=== PATIENT | female | born 1965 ===

== ENCOUNTER 2016-12-17 05:55 | Observation (INO) | payer MEDICARE, OTHER ==
[2016-12-17 05:55] VITALS: BMI 25.0
[2016-12-17] MEDS ORDERED: DiphenhydrAMINE 50 mg/ml Inj IV STA (06:11)
[2016-12-17] MEDS ORDERED: DiphenhydrAMINE 50 mg/ml Inj ONE (06:20)
--- NOTE | 2016-12-17 06:20 | ED PDOC ---
HPI: Abdomen <Montrell Ferreira III - Last Filed: 12/17/16 07:08> History Per: Patient History/Exam Limitations: no limitations Onset/Duration Of Symptoms: Days (7) Outside of [place] travel?: No Current Symptoms Are (Timing): Still Present Severity: Severe Location Of Pain/Discomfort: Diffuse Quality Of Discomfort: "Pain" Associated Symptoms: Nausea, Vomiting. denies: Fever, Chills, Diarrhea, Loss Of Appetite, Back Pain, Chest Pain, Constipation, Urinary Symptoms Exacerbating Factors: None Alleviating Factors: None Additional History Per: Patient <Nikolas Whalen - Last Filed: 12/17/16 19:41> Time Seen by Provider: 12/17/16 06:03 Chief Complaint (Nursing): Abdominal Pain Additional Complaint(s): 51 y/o female with known history of diverticular disease, ESRD on M/W/F hemodialysis, and HTN, here complaining of severe diffuse abdominal pain for one week. Percocet did not relieve her pain. Pain is associated with nausea and nonbloody nonbilious vomiting. No diarrhea, chest pain, shortness of breath, fever, or chills. She reports that she was recently seen at [facility] for the same and discharged, however her pain has worsened. Patient has also been seen multiple times in this department, and is well known to this provider. (Nikolas Whalen) Past Medical History <Montrell Ferreira III - Last Filed: 12/17/16 07:08> Reviewed: Historical Data, Nursing Documentation, Vital Signs - Medical History PMH: Anemia, Anxiety, Diverticulitis, Gastritis, HTN, Hypercholesterolemia, Kidney Stones, End Stage Renal Disease, Chronic Kidney Disease (HD M/W/F) Denies: HIV - Surgical History Surgical History: Cholecystectomy Other surgeries: AV Fistula placement - Family History Family History: States: Unknown Family Hx - Social History Current smoker - smoking cessation education provided: No Alcohol: None Drugs: Denies - Immunization History Hx Tetanus Toxoid Vaccination: No Hx Influenza Vaccination: Yes Hx Pneumococcal Vaccination: Yes <Nikolas Whalen - Last Filed: 12/17/16 19:41> Vital Signs: Last Vital Signs Temp 98.8 F 12/17/16 13:59 Pulse 93 H 12/17/16 13:28 Resp 18 12/17/16 13:28 BP 136/78 12/17/16 13:28 Pulse Ox 99 12/17/16 14:41 - Home Medications Home Medications: Ambulatory Orders Medication Instructions Recorded Calcium Carbonate/Vitamin D3 600 mg PO DAILY 10/17/15 [Calcium 600-Vit D3 200 Tablet] Enalapril/Hydrochlorothiazide 1 tab PO DAILY 10/17/15 [Enalapril-Hctz 10-25 mg Tablet] Ferric Sulfate 325 mg PO DAILY 10/17/15 Metoprolol Tartrate [Lopressor] 50 mg PO BID 10/17/15 Simvastatin [Zocor] 20 mg PO HS 10/17/15 amLODIPine [Norvasc] 5 mg PO DAILY 10/17/15 Pantoprazole Sodium [Protonix] 40 mg PO DAILY #30 tablet. 01/14/16 Ciprofloxacin [Cipro] 250 mg PO Q12 #20 tab 12/17/16 Docusate Sodium [Dulcolax Stool 100 mg PO BID PRN 12/17/16 Softener] Sevelamer Carbonate [Renvela] 2 tab PO TID 12/17/16 Sucralfate [Carafate Oral Susp] 1 gm PO BID 12/17/16 metroNIDAZOLE [Flagyl] 250 mg PO Q8 #30 tab 12/17/16 - Allergies Allergies/Adverse Reactions: Allergies Allergy/AdvReac Type Severity Reaction Status Date / Time apple Allergy SWELLING Verified 01/15/16 14:00 green apples Allergy Unknown throat Uncoded 01/15/16 14:00 closing Review of Systems ROS Statement: Except As Marked, All Systems Reviewed And Found Negative Gastrointestinal: Positive for: Nausea, Vomiting, Abdominal Pain <Nikolas Whalen - Last Filed: 12/17/16 19:41> Physical Exam - Reviewed Nursing Documentation Reviewed: Yes Vital Signs Reviewed: Yes - Physical Exam Appears: Positive for: Well, Non-toxic, No Acute Distress Head Exam: Positive for: ATRAUMATIC, NORMAL INSPECTION, NORMOCEPHALIC Skin: Positive for: Normal Color, Warm, DRY Eye Exam: Positive for: EOMI, Normal appearance, PERRL ENT: Positive for: Normal ENT Inspection Neck: Positive for: Normal, Painless ROM Cardiovascular/Chest: Positive for: Regular Rate, Rhythm Respiratory: Positive for: CNT, Normal Breath Sounds Gastrointestinal/Abdominal: Positive for: Normal Exam, Bowel Sounds, Soft, Tenderness (diffuse) Back: Positive for: Normal Inspection Extremity: Positive for: Normal ROM Neurologic/Psych: Positive for: Alert, Oriented <Nikolas Whalen - Last Filed: 12/17/16 19:41> - Laboratory Results Result Diagrams: 12/17/16 06:35 12/17/16 06:35 <Montrell Ferreira III - Last Filed: 12/17/16 07:08> - Laboratory Results Result Diagrams: 12/17/16 06:35 12/17/16 06:35 - ECG O2 Sat by Pulse Oximetry: 99 <Nikolas Whalen - Last Filed: 12/17/16 19:41> Medical Decision Making <Montrell Ferreira III - Last Filed: 12/17/16 07:08> <Nikolas Whalen - Last Filed: 12/17/16 19:41> Medical Decision Making: Initial Impression: 51 y/o female with abdominal pain in the setting of known diverticular disease and ESRD. Plan: - Labs and UA - Benadryl and Phenergan - Reevaluation Review of the medical record showed several recent CT Abdomen studies that were negative. At this time, a CT will be deferred pending labs. Scribe Attestation Documented by Shruthi Pena acting as a scribe for Nikolas Whalen MD. Provider Attestation: All medical record entries made by the Scribe were at my direction and personally dictated by me. I have reviewed the chart and agree that the record accurately reflects my personal performance of the history, physical exam, medical decision making, and the department course for this patient. I have also personally directed, reviewed, and agree with the discharge instructions and disposition. (Nikolas Whalen) Disposition <Montrell Ferreira III - Last Filed: 12/17/16 07:08> - Patient ED Disposition Is Patient to be Admitted: Transfer of Care - Disposition Disposition: Transfer of Care Disposition Time: 07:00 Patient Signed Over To: Montrell Ferreira III <Nikolas Whalen - Last Filed: 12/17/16 19:41> - Clinical Impression Clinical Impression: End stage renal disease, Abdominal discomfort - Disposition Condition: FAIR
[2016-12-17] MEDS ORDERED: Promethazine 25 MG in Sodium Chloride 0.9% 50 ML IVPB STA (06:22)
[2016-12-17 06:51] LABS: BASO # 0.1 K/uL (0.0-0.2); BASO % 0.8 % (0.0-2.0); EOS # 0.3 K/uL (0.0-0.7); EOS % 3.4 % (0.0-4.0); HEMOGLOBIN 13.3 g/dL (12.0-16.0); LYMPH # 1.5 K/uL (1.0-4.3); LYMPH % 18.9 % (20.0-40.0); MEAN CORPUSCULAR HEMOGLOBIN 29.7 pg (27.0-31.0); MEAN CORPUSCULAR HGB CONC 32.7 g/dL (33.0-37.0); MEAN PLATELET VOLUME 9.8 fl (7.2-11.7); MONO # 0.7 K/uL (0.0-0.8); MONO % 8.5 % (0.0-10.0); NEUT # 5.5 K/uL (1.8-7.0); NEUT % 68.4 % (50.0-75.0); RBC 4.46 Mil/uL (3.80-5.20); RED CELL DISTRIBUTION WIDTH 16.3 % (11.5-14.5)
[2016-12-17 07:01] LABS: ALB/GLOB RATIO 1.4 (1.0-2.1); ALBUMIN 5.2 g/dL (3.5-5.0); CALCIUM 9.8 mg/dL (8.4-10.2)
[2016-12-17 07:09] LABS: INR 1.1 (0.9-1.2); PARTIAL THROMBOPLASTIN TIME 38.4 Seconds (25.6-37.1); PROTHROMBIN TIME 12.3 Seconds (9.8-13.1)
--- NOTE | 2016-12-17 07:14 | ED PDOC ---
- Laboratory Results Result Diagrams: 12/17/16 06:35 12/17/16 06:35 - ECG O2 Sat by Pulse Oximetry: 99 (RA) Pulse Ox Interpretation: Normal Medical Decision Making Medical Decision Making: Patient signed out to provider from Dr. Whalen at 0700 pending reevaluation. [address] reviewed from 2015 given persistent pain and need for narcotics. CT ABD&PELV was ordered and revealed acute diverticulitis. Given ESRD, admit Obs for serial abd exams and repeat CBC later. Antibiotics initiated renally dosed, confirmed w pharmacist. [facility] website Dr. Bae therefore patient will be admitted to hospitalist for observation given end stage renal disease and diverticulitis. Care was transferred to Dr Davila hospitalist approx 0910am. - Scribe Attestation Documented by Tri Esparza acting as a scribe for Montrell Ferreira. Provider Attestation: All medical record entries made by the Scribe were at my direction and personally dictated by me. I have reviewed the chart and agree that the record accurately reflects my personal performance of the history, physical exam, medical decision making, and the department course for this patient. I have also personally directed, reviewed, and agree with the discharge instructions and disposition. Disposition - Clinical Impression Clinical Impression: Diverticulitis, End stage renal disease - POA Present On Arrival: None - Disposition Disposition: Hospitalized as Observation Patient Disposition Time: 09:00 Condition: STABLE
[2016-12-17] MEDS ORDERED: Alum-Mag Hydrox-Simethicone Susp (30 mL) PO ONE (08:40)
--- NOTE | 2016-12-17 09:41 | CARD ---
APPROVED REPORT EKG Measurement Heart [id number] <Conclusion> Normal sinus rhythm Incomplete right bundle branch block Borderline ECG
[2016-12-17] MEDS ORDERED: metroNIDAZOLE 500mg/100ml NS 250 MG in Premixed IV 1 EA IVPB STA (09:55)
[2016-12-17] MEDS ORDERED: Ciprofloxacin 200mg/100ml D5W 100 ML IVPB STA (09:55)
--- NOTE | 2016-12-17 09:59 | CT ---
PROCEDURE: CT abdomen and pelvis dated 12/17/2016 HISTORY: diffuse abd pain, hx diverticular dz COMPARISON: Comparison made with CT scan abdomen pelvis 01/15/2016. TECHNIQUE: Contiguous axial images of the abdomen and pelvis performed without oral or intravenous contrast material. Additional 2 dimensional sagittal and coronal reformats provided. Radiation dose: Total exam DLP = 1025.95 mGy-cm. This CT exam was performed using one or more of the following dose reduction techniques: Automated exposure control, adjustment of the mA and/or kV according to patient size, and/or use of iterative reconstruction technique. FINDINGS: LOWER THORAX: Effusion mild passive atelectasis both posterior lower lung cabrera. No evidence of consolidation effusion or pneumothorax. Small hiatal hernia with wall thickening of the distal esophagus that could be due to protrusion of gastric mucosa. Possibility of esophagitis or other intrinsic/invasive wall lesion not excluded. LIVER: Liver exhibits normal size measuring approximately 14 cm in CC dimension. Liver demonstrates relatively normal attenuation pattern without mass collection or calcification. . GALLBLADDER AND BILE DUCTS: Re- demonstrated are of post cholecystectomy changes with metallic clips in the gallbladder fossa. PANCREAS: The pancreas appears grossly unremarkable. SPLEEN: Spleen is upper limits of normal in size measuring approximately 12.2 cm in the at the CC dimension. 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 KIDNEYS AND URETERS: Right kidney is not visualized. . There are of radiopaque density seen in the region the right renal fossa likely suture material. Clinical correlation with history is surgical recommended. Left kidney is atrophic. Again noted is a rounded approximately 2.2 cm low-attenuation lesion upper pole left kidney which may represent a hyperdense cyst. Ultrasound followup recommended to exclude any solid component. 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 Approximately 14 mm by 11 mm. BLADDER: Urinary bladder is incompletely distended which may presumably accounts for slight thick-walled appearance. Cystitis not excluded. REPRODUCTIVE: Unremarkable. APPENDIX: Appendix is not seen with any certainty on this study. BOWEL: Evaluation of the bowel is limited due to the lack of oral contrast material. . Stomach is incompletely distended. Visualized loops of small bowel exhibit normal contour and caliber. No evidence of acute mechanical small bowel obstruction. Re- demonstrated is diffuse diverticulosis including diverticula seen arising from the right colon. Localized wall thickening of a short segment of the sigmoid colon with infiltration in the adjacent mesenteric. Findings are consistent with mild moderate acute diverticulitis. No evidence of gross free intraperitoneal air. There may be a small amount fluid adjacent to the localized inflamed segment of sigmoid colon PERITONEUM: No evidence of gross free intraperitoneal air or or free/loculated fluid collections. There are infiltration changes seen and what could represent a small amount of fluid adjacent to to inflamed segment of sigmoid colon mentioned above LYMPH NODES: Unremarkable. No enlarged lymph nodes. VASCULATURE: As above. No evidence of aortic aneurysm. BONES: Multilevel degenerative spondylosis of the lower thoracic and lumbar spine. OTHER FINDINGS: None. IMPRESSION: Diverticulosis with a localized acute [id number] diverticulitis involving a short segment of the sigmoid colon as above. Right kidney is not visualized and presumably secondary to prior nephrectomy however clinical correlation with surgical history is recommended. Atrophic appearing left kidney with hypodense low-attenuation 2.2 cm focus upper pole that may represent hyperdense cyst. Followup nonemergent ultrasound could be performed to exclude any solid components. 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 Status post cholecystectomy. See above discussion for additional findings and details. Findings discussed with Dr. Ferreira at approximately 9:55 a.m. with written down and read back verification disease
[2016-12-17] MEDS ORDERED: metroNIDAZOLE 500mg/100ml NS 100 ML IVPB ONE (10:00)
[2016-12-17] MEDS ORDERED: Ciprofloxacin 400mg/200ml D5W 0 MG/0 ML BAG IVPB ONE (10:01)
[2016-12-17] MEDS ORDERED: Sucralfate 1 gm/10 ml Oral Susp UD PO SCH (11:00)
[2016-12-17] MEDS ORDERED: Sucralfate 1 gm/10 ml Oral Susp UD ONE (11:08)
--- NOTE | 2016-12-17 12:50 | CP.PCM.HP ---
History of Present Illness - History of Present Illness History of Present Illness: CC: stomach pain HPI: 51F PMH ESRD HD [facility] [employer] Dr. Clair Albert, HTN, Hypercholesterolemia , gastritis, diverticulitis, nephrolithiasis, presents with a one month history of abdominal pain. Patient states this pain worsened the last two days, describing it as sharp, stabbing, waxing and waning. CT abd pel: diverticulosis with a localized mild to moderate diverticulitis involving a short segment of the sigmoid colon. She is afebrile, no leukocytosis, vitals are stable, with electrolytes within normal limits. In ER patient was started on Cipro and Flagyl renally dosed. She then began to hysterically complain of epigastric pain disproportionate to exam and findings, and exhibiting pain seeking behavior. Her requested multiple times specifically for 2 mg of Dilaudid, when this was not given, he asked for anxiety medication "for the pain." When this was denied, the patient asked for Benadryl in addition to the Toradol she was given. Patient was given toradol, carafate, protonix IV, bentyl, in addition to IV abx. Patient is to be discharged home with PO antibiotics for divericulitis. All information was explained to patient, and she was also instructed to take all her antibiotics, resume her home medications, and to follow up with PCP and her GI doctor Dr. Fermin Barnett. To note: Was called to speak with ; he was very upset we did not give her requested meds and stated he did not see how we could send her home "in so much pain." It was clearly explained that our goal is to treat her diverticulitis and to stop the inflammation which was causing the pain, and that she was also given toradol for the pain in addition to all the other rx for her gastritis. In addition, it was conveyed that the patient did not require hospitalization for her condition as her vitals are stable, as is all her blood work, no wbc or electrolyte derangements. It was also explained that while he stepped out, the patient had been sleeping comfortably for over a half hour, and that she only began to complain again upon his return. He stated that the antibiotics will not help and that she will not take them, and that she needs pain medication, and also anxiety medication for her pain. It was strongly reinforced that she needs to be compliant. It was also explained that anxiety medication will not resolve her pain. Her prescriptions were sent to via [facility] to her pharmacy in [facility]. TOTAL TIME SPENT 90 MINUTES Greater than 50% of time spent on coordination of care/counseling, answering questions, addressing all concerns. All questions and concerns answered and patient and patient expressed understanding of all issues explained. ROS: per HPI, 12 systems reviewed and negative PMH: ESRD HD [facility] [employer] Dr. Clair Albert, HTN, Hypercholesterolemia, gastritis, diverticulitis, nephrolithiasis PSH: juancarlos, av fistula FH: denies SH: denies tobacco, ETOH, IVDU, pt exhibiting pain seeking behavior Meds: as below Allergies: NKDA Vitals: reviewed and currently stable Temp Pulse Resp BP Pulse Ox 98.8 F 93 H 18 136/78 96 12/17/16 13:59 12/17/16 13:28 12/17/16 13:28 12/17/16 13:28 12/17/16 13:28 Exam: GEN: WDWN, alert, appears to be in pain disproportionate to exam HEENT: NCAT, PERRL, EOMI NECK: supple, no JVD, no lymphadenopathy CARDIAC: +S1S2 RRR LUNG: CTAB No WRR ABD: SOFT ND BSX4 NO MASSES NO HSM; generalized abd tenderness, however less tenderness while engaging patient in conversation EXT: +pedal pulses, equal strength NEURO: AAOx3 SKIN warm, dry PSYCH normal mood, normal affect Labs: 12/17/16 12/17/16 12/17/16 06:35 06:35 06:35 WBC 8.0 RBC 4.46 Hgb 13.3 Hct 40.6 MCV 91.0 MCH 29.7 MCHC 32.7 L RDW 16.3 H Plt Count 150 MPV 9.8 Neut % (Auto) 68.4 Lymph % (Auto) 18.9 L [place] % (Auto) 8.5 Eos % (Auto) 3.4 Baso % (Auto) 0.8 Neut # 5.5 Lymph # 1.5 [place] # 0.7 Eos # 0.3 Baso # 0.1 PT 12.3 INR 1.1 APTT 38.4 H Sodium 137 Potassium 4.7 Chloride 90 L Carbon Dioxide 31 H Anion Gap 21 H BUN 31 H Creatinine 6.7 H Est GFR ( Amer) 8 Est GFR (Non-Af Amer) 6 Random Glucose 94 Calcium 9.8 Total Bilirubin 1.1 AST 53 H D ALT 49 Alkaline Phosphatase 136 H Total Protein 9.0 H Albumin 5.2 H Globulin 3.8 Albumin/Globulin Ratio 1.4 Lipase 76 Rads: CT abd pel: diverticulosis with a localized mild to moderate diverticulitis involving a short segment of the sigmoid colon. Assessment and Plan: 51F PMH ESRD HD [facility] [employer] Dr. Clair Albert, HTN, Hypercholesterolemia, gastritis, diverticulitis, nephrolithiasis, presents with a one month history of abdominal pain. Patient states this pain worsened the last two days, describing it as sharp, stabbing, waxing and waning. CT abd pel: diverticulosis with a localized mild to moderate diverticulitis involving a short segment of the sigmoid colon. She is afebrile, no leukocytosis, vitals are stable, with electrolytes within normal limits. Extensive course in ER for pain med seeking behavior. See above. Patient is to be discharged home with PO antibiotics Cipro and Flagyl for divericulitis. All information was explained to patient, and she was also instructed to take all her antibiotics, resume her home medications, and to follow up with PCP and her GI doctor Dr. Fermin Barnett. Stable for discharge home. Present on Admission - Present on Admission Any Indicators Present on Admission: No Past Patient History - Past Medical History & Family History Past Medical History?: Yes - Past Social History Alcohol: None Drugs: Denies - CARDIAC Hx Hypercholesterolemia: Yes Hx Hypertension: Yes - PULMONARY Hx Respiratory Disorders: No - NEUROLOGICAL Hx Neurological Disorder: Yes Hx Dizziness: Yes - HEENT Hx HEENT Problems: No Other/Comment: wears reading glasses - RENAL Hx Chronic Kidney Disease: Yes (HD M/W/F) Hx Kidney Stones: Yes - ENDOCRINE/METABOLIC Hx Endocrine Disorders: No - HEMATOLOGICAL/ONCOLOGICAL Hx Anemia: Yes Hx Human Immunodeficiency Virus (HIV): No - INTEGUMENTARY Hx Dermatological Problems: No - MUSCULOSKELETAL/RHEUMATOLOGICAL Hx Musculoskeletal Disorders: No Hx Falls: No - GASTROINTESTINAL Hx Diverticulitis: Yes Hx Gastritis: Yes - GENITOURINARY/GYNECOLOGICAL Hx Genitourinary Disorders: No - PSYCHIATRIC Hx Anxiety: Yes - SURGICAL HISTORY Hx Cholecystectomy: Yes - ANESTHESIA Hx Anesthesia: Yes Hx Anesthesia Reactions: No Meds Home Medications: Home Medication List Medication Instructions Recorded Confirmed Type Ciprofloxacin [Cipro] 250 mg PO Q12 #20 tab 12/17/16 Rx Sucralfate [Carafate Oral Susp] 1 gm PO BID 12/17/16 Rx metroNIDAZOLE [Flagyl] 250 mg PO Q8 #30 tab 12/17/16 Rx Allergies/Adverse Reactions: Allergies Allergy/AdvReac Type Severity Reaction Status Date / Time apple Allergy SWELLING Verified 01/15/16 14:00 green apples Allergy Unknown throat Uncoded 01/15/16 14:00 closing Results - Vital Signs Recent Vital Signs: Last Vital Signs Temp 98.1 F 12/17/16 07:21 Pulse 73 12/17/16 08:45 Resp 12 12/17/16 08:45 BP 136/86 12/17/16 08:45 Pulse Ox 99 12/17/16 10:13 - Labs Result Diagrams: 12/17/16 06:35 12/17/16 06:35
[2016-12-17 13:29] VITALS: BP 136/78; PULSE 93; RESP 18
[2016-12-17 13:59] VITALS: TEMP 98.8
[2016-12-17 14:41] VITALS: O2SAT 99
[2016-12-18] MEDS ORDERED: Patient's Own Med (Enalapril/Hydrochlorothiazide [Enalapril-Hctz 10-25 Mg Tablet] 1 TAB) PO SCH (09:00)
[2016-12-18] MEDS ORDERED: Pantoprazole 40 mg EC Tab PO SCH (09:00)
== END 2016-12-17 14:20 | disposition home or self-care (01) ==
LOC: H.ER 05:55 → H.ERHOLD 10:00
PROVIDERS: ADMIT Student in an Organized Health Care Education/Training Program; ATTEND Student in an Organized Health Care Education/Training Program
DX: K57.92 Diverticulitis of intestine, part unspecified, without perforation or abscess without bleeding (principal); I12.0 Hypertensive chronic kidney disease with stage 5 chronic kidney disease or end stage renal disease; N18.6 End stage renal disease; Z99.2 Dependence on renal dialysis; F41.9 Anxiety disorder, unspecified; K29.70 Gastritis, unspecified, without bleeding; E78.00 Pure hypercholesterolemia, unspecified; Z76.5 Malingerer [conscious simulation]; Z91.018 Allergy to other foods
CPT/HCPCS: 74176; 80053; 83690; 85025; 85610; 85730; 93005; 96365; 96366; 96367; 96372; 96375; 99285; C9113; G0378; J0500; J0744; J1200; J1885; J2270; J2550